=== PATIENT | male | born 1965 | race Caucasian/White ===

== ENCOUNTER 2017-02-07 09:18 | Day surgery (SDC) | payer BC ==
[2017-02-05 09:11] VITALS: BMI 36.1
[~2017-02-07 09:18] MED LIST: LACTATED RINGERS 1,000 ML IV SCH
[2017-02-07 09:34] VITALS: RESP 18; TEMP 98
[2017-02-07] MEDS ORDERED: LACTATED RINGERS 1,000 ML IV ONE (09:34)
[2017-02-07] MEDS ORDERED: LIDOCAINE 1% 20 ML VIAL (10MG/ML) FOR IV START INTRADERMA ONE (09:34)
[2017-02-07] MEDS ORDERED: LIDOCAINE 1% INJ 10MG/ML (20 ML MDV) ONE (10:17)
[2017-02-07] MEDS ORDERED: PROPOFOL 10 MG/ML 20 ML VIAL IV ONE (10:17)
--- NOTE | 2017-02-07 10:30 | P.PCN ---
Date of Procedure: 02/07/17 Procedure(s) Performed: BRIEF HISTORY: Patient is a 51-year-old pleasant white male, scheduled for an elective colonoscopy as a part of surveillance of ulcerative colitis diagnosed 2010. He was diagnosed with ulcerative proctitis and since has been on Canasa suppositories as needed. Last flareup was 7 weeks ago. PROCEDURE PERFORMED: Colonoscopy with biopsy. PREOPERATIVE DIAGNOSIS: History of ulcerative proctitis. IV sedation per Anesthesia. PROCEDURE: After informed consent was obtained, the patient, was brought into the endoscopy unit. IV sedation was administered by Anesthesia under continuous monitoring. Digital rectal examination was normal. Initially the Olympus CF- 160 flexible video colonoscope was then inserted in the rectum, gradually advanced into the cecum without any difficulty. Careful examination was performed as the scope was gradually being withdrawn. Ileocecal valve and the appendiceal orifice were visualized and appeared normal. Prep was excellent. Mucosa of the cecum, ascending colon, transverse colon, descending colon, sigmoid colon, and rectum appeared normal. No active colitis seen. Random biopsies were done in different areas of the colon to rule out dysplasia. Retroflexion was performed in the rectum and no lesions were seen. The patient tolerated the procedure well. IMPRESSION: Normal-appearing colon from rectum to cecum with no evidence of active colitis . RECOMMENDATIONS: Findings of this examination were discussed with the patient as well as his family. He was advised to follow with the biopsy results. If the biopsies show no evidence of dysplasia he can have a repeat colonoscopy in 2 -3 years.
[2017-02-07 10:59] VITALS: BP 126/85; PULSE 67
== END 2017-02-07 11:10 | disposition home or self-care (01) ==
LOC: ORWHC2ENDO 09:18
PROVIDERS: ATTEND Internal Medicine Gastroenterology
DX: K51.30 Ulcerative (chronic) rectosigmoiditis without complications (principal); Z79.1 Long term (current) use of non-steroidal anti-inflammatories (NSAID)
CPT/HCPCS: 88305; 45380; J2001; J2704

== ENCOUNTER → 2022-05-16 | Outpatient (CLI) | payer BC ==
--- NOTE | 2022-05-16 10:44 | MR ---
EXAMINATION TYPE: MR brain and iac wo/w con DATE OF EXAM: 05/16/2022 COMPARISON: None HISTORY: Dizziness and left-sided hearing loss TECHNIQUE: Multiplanar, multisequence images of the brain and brainstem is performed without and with IV contras t, utilizing 10 mL intravenous Gadavist . FINDINGS: Diffusion weighted images demonstrate no evidence of a recent infarct or other diffusion ab normality. There is no extra-axial fluid collection or significant white matter signal abnormality. The ventricular system and cisternal spaces are normal in size and appearance. The brain volume is age appropriate. Midline structures demonstrate normal morphology. The craniocervical junction appears within normal limits. Post contrast images demonstrate no abnormal enhancement. The dural venous sinuses appear pa tent. Changes of chronic sinusitis are noted. Orbits are symmetric. Nasal septal deviation. No cerebellopontine angle mass. Diagnostic evidence IMPRESSION: 1. No evidence of cerebellopontine angle masses are limited to chronic sinusitis.
== END | disposition home or self-care (01) ==
LOC: RADMRIMAIN 09:01
PROVIDERS: ATTEND Nurse Practitioner Family
DX: J32.9 Chronic sinusitis, unspecified (principal); G52.9 Cranial nerve disorder, unspecified
CPT/HCPCS: 70553; A9585

== ENCOUNTER 2024-06-09 09:00 | Day surgery (SDC) | payer BC ==
[2024-06-09] MEDS ORDERED: LACTATED RINGERS 1,000 ML BAG ONE (11:00)
[2024-06-09] MEDS ORDERED: PROPOFOL 10 MG/ML 20 ML VIAL IV ONE (11:42)
--- NOTE | 2024-06-18 15:53 | OP ---
OPERATIVE REPORT DATE OF SERVICE : 06/09/2024 REQUESTING PHYSICIAN: None. HISTORY: Patient is a 58-year-old pleasant white male scheduled for an elective colonoscopy as a part of evaluation of longstanding history of ulcerative colitis diagnosed in 2009. He is scheduled for a screening colonoscopy today. The patient has been in clinical remission. PROCEDURE PERFORMED: Colonoscopy with random biopsies. PREOPERATIVE DIAGNOSIS: Screening for colon cancer and longstanding history of ulcerative colitis. ANESTHESIA: IV sedation per Anesthesia. DESCRIPTION OF PROCEDURE: After informed consent was obtained from the patient, he was brought to the endoscopy unit. IV conscious sedation was administered by Anesthesia and continuous monitoring. Initial distal rectal examination was normal. The Olympus CF-180 video colonoscope was then inserted in the rectum, gradually advanced to the cecum. Careful examination was performed. The scope was gradually being withdrawn. The ileocecal valve and appendiceal orifice were visualized. They appeared normal. The prep was excellent. Mucosa of the cecum, ascending colon, transverse colon, descending colon, sigmoid colon and rectum appeared normal. Random biopsies were done from the cecum to rectum at every 10 cm interval. There were no polyps or masses identified. Retroflexion was performed in rectum. No lesions were noted. The patient tolerated the procedure well. IMPRESSION: Normal-appearing colon from rectum to cecum with no evidence of colitis or colorectal neoplasia. RECOMMENDATION: Findings of this examination were discussed with the patient as well as his family. He was advised to follow up with biopsy results. If the biopsy does not show any evidence of dysplasia, he can have a repeat colonoscopy in 3 years. MMODL / IJN: [id number] /
== END 2024-06-09 12:26 ==
LOC: ORWHC2ENDO 09:00
PROVIDERS: ATTEND Internal Medicine Gastroenterology
DX: Z12.11 Encounter for screening for malignant neoplasm of colon (principal); K51.90 Ulcerative colitis, unspecified, without complications; Z98.890 Other specified postprocedural states
CPT/HCPCS: 45380; 88305